=== PATIENT | female | born 2000 | race African-American/Black ===

== ENCOUNTER 2022-01-04 14:28 | Emergency (ER) | payer OTHER, SELFPAY ==
--- NOTE | ~2022-01-04 | XR_ITS ---
EXAMINATION: XR hand LT min 3V DATE: 01/04/2022 15:22 INDICATION: Left hand pain. TECHNIQUE: 3 views of left hand were obtained. COMPARISON: None. FINDINGS: Bone alignment is normal. No fracture. Joint spaces are well maintained. IMPRESSION: 1. Normal left hand. Reviewed, dictated and finalized at location A. IMPRESSION: 1. Normal left hand.
[2022-01-04 14:40] VITALS: BP 144/95; PULSE 87; RESP 18; TEMP 36; O2SAT 100
--- NOTE | 2022-01-04 15:42 | ED.UPPEXIN ---
HPI - Extremity Injury (Upper) General Chief Complaint: Extremity Injury, Upper Stated Complaint: injury Time Seen by Provider: 01/04/22 14:46 Source: patient Mode of arrival: ambulatory Limitations: no limitations History of Present Illness HPI narrative: Pt is a 21 y/o female, presents to ED via POV with C/O left hand pain for the past few days, worse with flexion of fingers as when grasping objects, without known injury. She does endorse repetitive movements of BUE on a daily basis. She is right hand dominant. Pain in the left hand radiates up the forearm at times and is alleviated at rest. She has no other complaints and denies chance of complaint: injury to: left and hand Other injuries: none Handedness: right Place: home Severity: mild Severity scale (1-10): 4 Relieving factors: none Exacerbating factors: rest Associated symptoms: denies other symptoms Related Data Allergies Allergy/AdvReac Type Severity Reaction Status Date / Time No Known Allergies Allergy Verified 01/04/22 14:40 Review of Systems Review of Systems: All systems reviewed & are unremarkable except as noted in HPI and below Exam Const: General: cooperative, healthy appearing, comfortable, well developed and well groomed Nutritional Appearance: obese Orientation/consciousness: oriented to person, oriented to place, oriented to time and patient oriented x3 Limitations: no limitations HENMT: Head: normal to inspection Ears: hearing grossly normal bilaterally General nose exam: Normal external nose present Face and sinus: normal facial exam Eyes: General: appearance normal, both eyes and all related structures Visual Mobley: normal visual mboley by confrontation Alignment and Position: alignment normal and position normal Periorbital: periorbital findings normal Eyelids: eyelids normal Conjunctivae: conjunctivae normal Sclera: sclerae normal Neck: Neck: normal visual inspection and no meningeal signs Resp: Effort & Inspection: normal respiratory effort Auscultation: clear to auscultation bilaterally Cardio: Rate: regular rate Rhythm: regular rhythm Heart sounds: S1 normal heart sound present and S2 normal heart sound present Peripheral pulses: Peripheral pulses 2+ throughout Skin: General skin exam: normal color and no rashes or lesions noted Neuro: Deep tendon reflexes (DTR's): Left biceps reflex intensity grade: 2+ and Left brachioradialis reflex intensity grade: 2+ Extrem: General: normal to inspection, full ROM and capillary refill normal Left upper extremity: normal to inspection, full ROM, normal capillary refill and hand normal to inspection and tendon exam abnormal (Pt is TTP over the left palmar surface, 2nd and 3rd distal MC, without visible swelling or ROM deficit. Pain increases with flexion of fingers of the left hand, ROM is intact. Distal PMS intact) Course Course Emergency Course: Imaging is unremarkable. Plan to discharge home on oral anti-inflammatories, in cock up splint, rest, elevate, FU with Dr Reddy if symptoms are not improving in 10-14 days. Pt is agreeable with plan. Vital Signs Vital signs: Vital Signs Temperature 36.0 C L 01/04/22 14:40 Pulse Rate 87 01/04/22 14:40 Respiratory Rate 18 01/04/22 14:40 Blood Pressure 144/95 H 01/04/22 14:40 Pulse Oximetry 100 01/04/22 14:40 Temperature 36.0 C L 01/04/22 14:40 Pulse Rate 87 01/04/22 14:40 Respiratory Rate 18 01/04/22 14:40 Blood Pressure 144/95 H 01/04/22 14:40 Pulse Oximetry 100 01/04/22 14:40 MDM - Extremity Injury (Upper) MDM Narrative Medical decision making narrative: tendinitis, contusion, carpal tunnel is of lower concern given age and location of discomfort Imaging Data Attestation: I personally reviewed and interpreted this imaging study as follows: Discharge Plan Discharge Clinical Impression: Flexor tendinitis of hand Patient Disposition: Home, Self-Care Condition: Stable Instructions:
--- NOTE | 2022-01-04 16:08 | PC.NURSE ---
Currently out of stock for wrist splint. Notified provider. Provider writing prescription for splint.
== END 2022-01-04 16:17 | disposition home or self-care (01) ==
PROVIDERS: Emergency Provider Nurse Practitioner Family
DX: M77.8 Other enthesopathies, not elsewhere classified (principal)
CPT/HCPCS: 29125; 73130; 99283

== ENCOUNTER 2022-07-10 20:55 | Emergency (ER) | payer OTHER, SELFPAY ==
--- NOTE | ~2022-07-10 | XR_ITS ---
EXAM: XR foot LT min 3V DATE: 07/10/2022 21:35 HISTORY: gen pain, swelling Lt foot onset x days; no injury . COMPARISON: None available. FINDINGS: Normal mineralization. No fracture or dislocation. No lytic or blastic lesion. Pes planus. Moderate hallux valgus. Mild degenerative change at the first MTP joint, remaining joint spaces are maintained. No erosion or periosteal change. Forefoot soft tissue swelling. IMPRESSION: No acute osseous finding in the left foot. Reviewed, dictated and finalized at location K.
[2022-07-10 21:04] VITALS: BP 124/79; PULSE 88; RESP 16; TEMP 36.2; O2SAT 100
--- NOTE | 2022-07-10 21:27 | ED.EXTPRO ---
HPI - Extremity Problem General Chief complaint: Extremity Problem,Nontraumatic Stated complaint: Left foot pain/edema Time Seen by Provider: 07/10/22 21:05 History of Present Illness HPI Narrative: 22-year-old with a history of hypothyroidism presents to the emergency room for evaluation of atraumatic left foot pain and swelling. Patient states that she woke up this morning noticed her left foot was swollen. Denies any injury or trauma. Denies any insect stings. States pain radiates up into her calf when ambulating. Denies any known history of DVTs. Related Data Allergies Allergy/AdvReac Type Severity Reaction Status Date / Time No Known Allergies Allergy Verified 07/10/22 20:58 Review of Systems Review of Systems: CONSTITUTIONAL: Denies fever, chills, or sweats. EYES: Denies visual changes, redness, or discharge. ENT: Denies rhinorrhea, congestion, sore throat, or otalgia. CARDIOVASCULAR: Denies chest pain, palpitations, or edema. RESPIRATORY: Denies cough or dyspnea. GASTROINTESTINAL: Denies abdominal pain, nausea, vomiting, or diarrhea. GENITOURINARY: Denies dysuria or hematuria. SKIN: Denies rash or itching. MUSCULOSKELETAL: Reports diffuse swelling of left foot NEUROLOGIC: Denies headache, numbness, dizziness, or weakness. PSYCHIATRIC: Denies anxiety or depression. Exam Narrative: GENERAL: Well-appearing, well-nourished, no physical limitations, and in no acute distress. HEAD: Normocephalic, atraumatic. EYES: Conjunctivae normal, PERRLA and EOMI. CHEST: Clear to auscultation. No respiratory distress. No wheezes rales or rhonchi. HEART: Regular rate and rhythm. No murmur heard. Normal peripheral pulses. ABDOMEN: Soft, nontender, nondistended, normal active bowel sounds. EXTREMITIES: Left foot: Diffuse soft tissue swelling no point tenderness. Negative Homans' sign. Distal pulses present SKIN: Warm, dry, no rash. No noted wounds NEURO: No focal deficits. Alert and oriented x3. MAEW. CN's II-XI intact bilaterally, normal gait PSYCH: Cooperative. Normal mood and affect. Course Vital Signs Vital signs: Vital Signs Temperature 36.2 C L 07/10/22 21:04 Pulse Rate 88 07/10/22 21:04 Respiratory Rate 16 07/10/22 21:04 Blood Pressure 124/79 07/10/22 21:04 Pulse Oximetry 100 07/10/22 21:04 Oxygen Delivery Room Air 07/10/22 21:04 Temperature 36.2 C L 07/10/22 21:04 Pulse Rate 88 07/10/22 21:04 Respiratory Rate 16 07/10/22 21:04 Blood Pressure 124/79 07/10/22 21:04 Pulse Oximetry 100 07/10/22 21:04 Oxygen Delivery Room Air 07/10/22 21:04 MDM - Extremity (Nontraumatic) Lab Data Labs: Lab Results 07/10/22 Range/Units 21:32 D-Dimer 0.36 (<0.48) ug/mL Discharge Plan Discharge Clinical Impression: Lower extremity edema Patient Disposition: Home, Self-Care Condition: Stable Instructions: Antibiotic Form, Edema (ED) Prescriptions: New naproxen 500 mg tablet 500 mg PO BID Qty: 20 0RF No Action ibuprofen 600 mg tablet 600 mg PO Q6H PRN (Reason: pain) Qty: 20 0RF Follow-up/Referrals: PHYSICIAN NOT ON STAFF,NONSTAFF [Primary Care Provider] - Time of Disposition: 22:33
[2022-07-10 22:09] LABS: D Dimer 0.36 ug/mL (<0.48)
[2022-07-10] MEDS: NAPROXEN 500 MG TABLET PO (22:50)
[2022-07-10 22:54] VITALS: BP 138/80; PULSE 86; RESP 16; TEMP 36.8; O2SAT 100
== END 2022-07-10 22:56 | disposition home or self-care (01) ==
PROVIDERS: Emergency Provider Nurse Practitioner Family
DX: R60.0 Localized edema (principal)
CPT/HCPCS: 36415; 73630; 85380; 99283; A9270

== ENCOUNTER 2023-08-30 20:12 | Emergency (ER) | payer OTHER, SELFPAY ==
--- NOTE | ~2023-08-30 | XR_ITS ---
EXAMINATION: XR chest 2V DATE: 08/30/2023 20:50 INDICATION: Mid anterior chest pain. TECHNIQUE: Frontal and lateral views of the chest were obtained. COMPARISON: None. FINDINGS: There is no pneumonia, pleural effusion, or pneumothorax. The heart size is normal. IMPRESSION: 1. No acute cardiopulmonary disease. Reviewed, dictated and finalized at location E. WORKER
--- NOTE | ~2023-08-30 | US_ITS ---
EXAMINATION: US abdomen limited DATE: 08/30/2023 21:36 INDICATION: Right upper quadrant abdominal pain. TECHNIQUE: Multiple grayscale and Doppler ultrasound images of the abdomen were obtained. COMPARISON: None FINDINGS: The visualized portions of the head, body, and tail of the pancreas are normal. The liver i s normal without focal lesion. The gallbladder is normal in size and contains a gallstone. No gallbla dder wall thickening or sonographic Pedro sign. The common duct is normal and measures 3 mm. There i s normal flow in main portal vein. Right kidney is normal. IMPRESSION: 1. Cholelithiasis. No evidence of acute cholecystitis. Reviewed, dictated and finalized at location E. CAR BUILDER
--- NOTE | 2023-08-30 20:14 | ECG_ITS ---
Measurements Intervals [place] Rate: 89 P: 59 HI: 179 QRS: 17 QRSD: 88 T: 30 QT: 348 QTc: 425 Interpretive Statements SINUS RHYTHM BORDERLINE T WAVE ABNORMALITY- ANTERIOR LEADS BORDERLINE ECG NO PREVIOUS ECG AVAILABLE FOR COMPARISON Electronically Signed On 08-31-2023 7:06:57 EVAPORATOR by Fei Mccormick D.O.
[2023-08-30 20:15] VITALS: BP 145/95; PULSE 93; RESP 20; TEMP 37; O2SAT 99
[2023-08-30] MEDS: ASPIRIN 81 MG CHEWABLE TABLET 324 MG PO (20:34)
[2023-08-30 20:40] LABS: Basophils Percent Auto 0.5 % (0.2-1.2); Eosinophils Absolute Auto 0.1 K/mm3 (0-0.3); Eosinophils Percent Auto 1.3 % (0-4.4); Hematocrit 40.7 % (37.0-47.0); Hemoglobin 12.7 g/dL (12.0-15.0); Immature Granulocyte Absolute 0.01 K/mm3 (0.00-0.031); Immature Granulocyte Percent A 0.2 % (0-0.5); Lymphocytes Absolute Auto 2.62 K/mm3 (0.9-3.2); Lymphocytes Percent Auto 41.1 % (18.3-44.2); Mean Corpuscular HGB Conc 31.2 g/dl (32-36); Mean Corpuscular Hemoglobin 25.8 pg (26-34); Mean Corpuscular Volume 82.7 fl (80-100); Mean Platelet Volume 11.2 fl (7.4-10.4); Monocytes Absolute Auto 0.9 K/mm3 (0.1-0.6); Monocytes Percent Auto 13.9 % (2.6-8.5); Neutrophils Absolute Auto 2.8 K/mm3 (1.3-6.7); Platelet Count Result 266 k/mm3 (150-375); Red Blood Count 4.92 M/mm3 (4.2-5.4); Red Cell Distribution Width 13.3 % (11.5-14.5); White Blood Count 6.4 K/mm3 (4.5-10.0)
[2023-08-30 20:50] LABS: Alanine Aminotransferase 22 U/L (6-35); Albumin Level 4.2 g/dL (3.5-5.1); Alkaline Phosphatase 70 U/L (38-126); Anion Gap 6 mmol/L (8-16); Aspartate Amino Transferase 23 U/L (14-36); Bilirubin,Total 0.4 mg/dL (0.2-1.3); Blood Urea Nitrogen 7 mg/dL (7-17); Calcium 8.8 mg/dL (8.4-10.2); Carbon Dioxide 27 mmol/L (22-30); Chloride 103 mmol/L (98-107); Estimated CRCL calculation 124 ml/min; Estimated Glomerular Filt Rate > 60; Glucose 92 mg/dL (65-110); Lipase 67 U/L (23-300); Potassium 3.8 mmol/L (3.4-5.0); Sodium 136 mmol/L (137-145)
[2023-08-30 20:53] LABS: Prothrombin Time 13.1 Seconds (11.1-14.7)
[2023-08-30 20:54] LABS: Partial Thromboplastin Time 34.4 SECONDS (22.3-36.8)
[2023-08-30 21:01] LABS: Troponin I < 0.012 ng/mL (0.000-0.034)
[2023-08-30] MEDS: FAMOTIDINE 20 MG/2 ML VIAL IV PUSH (21:05)
--- NOTE | 2023-08-30 21:15 | ED.GENADULT ---
HPI - General Adult General Chief complaint: Chest Pain Stated complaint: chest pain/numbness in left hand Time Seen by Provider: 08/30/23 20:43 History of Present Illness HPI narrative: Patient 14-year-old female who presents emergency department with chief complaint of chest pain. Patient reports that she started having discomfort in her chest today patient reports that she did have a strange sensation in her left arm. Patient reports also she has had some uncomfortable feeling in her right upper quadrant as well. Patient states that she has family history for cardiac disease but she has never been diagnosed with cardiac disease. Patient reports that her mother had heart disease in her early 40s. Related Data Allergies Allergy/AdvReac Type Severity Reaction Status Date / Time No Known Allergies Allergy Verified 08/30/23 20:26 Review of Systems Review of Systems: A 10 system review of systems was completed on the patient and is negative except for what is stated in the HPI. Nursing and ancillary documentation was reviewed. Exam Narrative: GENERAL: Well-appearing, well-nourished, and in no acute distress. HEAD: Normocephalic, atraumatic. EYES: PERRLA and EOMI. ENT: Nares clear, no rhinorrhea or epistaxis. Mucous membranes moist. NECK: Supple. CHEST: Clear to auscultation. No respiratory distress. Tenderness to palpation of the right sternal border HEART: Regular rate and rhythm. No murmur heard. Normal peripheral pulses. ABDOMEN: Soft, nontender, nondistended, normal active bowel sounds. EXTREMITIES: Normal range of motion. No edema. SKIN: Warm, dry, no rash. NEURO: No focal deficits. Alert and oriented x3. PSYCH: Normal mood and affect. Course Vital Signs Vital signs: Vital Signs Temperature 37.0 C 08/30/23 20:15 Pulse Rate 93 08/30/23 20:15 Respiratory Rate 20 08/30/23 20:15 Blood Pressure 145/95 H 08/30/23 20:15 Pulse Oximetry 99 08/30/23 20:15 Oxygen Delivery Room Air 08/30/23 20:15 Temperature 37.0 C 08/30/23 20:15 Pulse Rate 80 08/30/23 23:59 Respiratory Rate 12 08/30/23 23:59 Blood Pressure 113/72 08/30/23 23:59 Pulse Oximetry 98 08/30/23 23:59 Oxygen Delivery Room Air 08/30/23 20:15 Medical Decision Making MDM Narrative Medical decision making narrative: Differential diagnosis includes cholecystitis, acute coronary syndrome, biliary colic, gastroesophageal reflux disease, esophageal spasm. Laboratory studies were obtained which showed a normal CBC electrolytes were within normal limits liver enzymes were normal initial troponin was negative and repeat troponin was negative as well. Lipase was 67 EKG showed no acute ischemic changes Chest x-ray showed no focal infiltrate Right upper quadrant ultrasound showed evidence of cholelithiasis without evidence of cholecystitis Vital Signs Vital Signs: Vital Signs Temperature 37.0 C 08/30/23 20:15 Pulse Rate 93 08/30/23 20:15 Respiratory Rate 20 08/30/23 20:15 Blood Pressure 145/95 H 08/30/23 20:15 Pulse Oximetry 99 08/30/23 20:15 Oxygen Delivery Room Air 08/30/23 20:15 Temperature 37.0 C 08/30/23 20:15 Pulse Rate 80 08/30/23 23:59 Respiratory Rate 12 08/30/23 23:59 Blood Pressure 113/72 08/30/23 23:59 Pulse Oximetry 98 08/30/23 23:59 Oxygen Delivery Room Air 08/30/23 20:15 Lab Data 08/30/23 20:35 08/30/23 20:35 Labs: Lab Results 08/30/23 08/30/23 08/30/23 Range/Units 20:35 20:36 23:17 WBC 6.4 (4.5-10.0) K/mm3 RBC 4.92 (4.2-5.4) M/mm3 Hgb 12.7 (12.0-15.0) g/dL Hct 40.7 (37.0-47.0) % MCV 82.7 (80-100) fl MCH 25.8 L (26-34) pg MCHC 31.2 L (32-36) g/dl RDW 13.3 (11.5-14.5) % Plt Count 266 (150-375) k/mm3 MPV 11.2 H (7.4-10.4) fl Immature Gran % (Auto) 0.2 (0-0.5) % Neut % (Auto) 43.0 L (45.5-73.1) % Lymph % (Auto) 41.1 (18.3-44.2) %
[2023-08-30 22:11] VITALS: BP 97/51; PULSE 92; RESP 16; O2SAT 99
[2023-08-30 22:47] VITALS: BP 115/78; PULSE 82; RESP 16; O2SAT 100
[2023-08-30] MEDS: KETOROLAC 15 MG/ML VIAL (*BKC) IV PUSH (23:06)
[2023-08-30 23:59] VITALS: BP 113/72; PULSE 80; RESP 12; O2SAT 98
[2023-08-31 00:13] LABS: Troponin I < 0.012 ng/mL (0.000-0.034)
[2023-08-31 00:34] VITALS: BP 120/73; PULSE 78; RESP 16; O2SAT 100
== END 2023-08-31 00:34 | disposition home or self-care (01) ==
PROVIDERS: Emergency Provider Emergency Medicine
DX: K80.20 Calculus of gallbladder without cholecystitis without obstruction (principal); R07.89 Other chest pain; R94.31 Abnormal electrocardiogram [ECG] [EKG]
CPT/HCPCS: 36415; 71046; 76705; 80053; 83690; 84484; 85025; 85610; 85730; 93005; 96374; 96375; 99284; A9270; J1885

== ENCOUNTER 2024-01-15 00:54 | Emergency (ER) | payer OTHER, SELFPAY ==
--- NOTE | ~2024-01-15 | CT_ITS ---
EXAMINATION: CT abdomen pelvis w con DATE: 01/15/2024 02:19 INDICATION: Right abdominal pain. TECHNIQUE: Computed tomography (CT) of the abdomen and pelvis was performed with 100 mL Omnipaque 350 intravenous contrast. Automated exposure control and iterative reconstruction technique were employe d. The dose-length product was 1060.18 mGy-cm. COMPARISON: Pelvis ultrasound 01/15/2024 FINDINGS: The visualized portions of the lung bases are clear without pneumonia or pleural effusion. The heart size is normal. No pericardial effusion. The liver, gallbladder, spleen, pancreas, adrenal glands, and kidneys are normal. There are no dilated loops of bowel. The appendix is normal. There ar e no pathologically enlarged lymph nodes. There is no free intraperitoneal fluid. There is a 3.2 cm c yst in right ovary. There is mild thoracic and lumbar spondylosis. IMPRESSION: 1. 3.2 cm cyst in right ovary, likely a follicular cyst. Reviewed, dictated and finalized at location E.
--- NOTE | ~2024-01-15 | US_ITS ---
EXAMINATION: US pelvic complete w TV DATE: 01/15/2024 04:04 INDICATION: Right lower quadrant abdominal pain. TECHNIQUE: Multiple transabdominal and transvaginal sonographic images of the pelvis were obtained. COMPARISON: CT abdomen and pelvis 01/15/2024 FINDINGS: TRANSABDOMINAL ULTRASOUND: The uterus measures 7.0 x 4.0 x 5.0 cm. There is no free fluid in the pelvis. TRANSVAGINAL ULTRASOUND: The endometrial complex measures 9 mm in thickness. The right ovary measures 3.4 x 2.5 x 3.0 cm. The left ovary measures 1.8 x 1.8 x 1.5 cm. In the right ovary, there is a 3.2 cm cyst. There is normal v ascular flow in the ovaries. IMPRESSION: 1. 3.2 cm cyst in right ovary, likely a follicular cyst. Reviewed, dictated and finalized at location E.
[2024-01-15 00:55] VITALS: BP 118/104; PULSE 88; RESP 16; TEMP 36.6; O2SAT 100
[2024-01-15 01:23] LABS: Basophils Absolute Auto 0.1 K/mm3 (0.0-0.1); Basophils Percent Auto 0.7 % (0.2-1.2); Eosinophils Absolute Auto 0.2 K/mm3 (0-0.3); Eosinophils Percent Auto 2.3 % (0-4.4); Hematocrit 40.4 % (37.0-47.0); Hemoglobin 12.7 g/dL (12.0-15.0); Immature Granulocyte Absolute 0.01 K/mm3 (0.00-0.031); Immature Granulocyte Percent A 0.1 % (0-0.5); Lymphocytes Absolute Auto 3.46 K/mm3 (0.9-3.2); Lymphocytes Percent Auto 47.2 % (18.3-44.2); Mean Corpuscular HGB Conc 31.4 g/dl (32-36); Mean Corpuscular Volume 82.8 fl (80-100); Mean Platelet Volume 10.9 fl (7.4-10.4); Monocytes Absolute Auto 0.7 K/mm3 (0.1-0.6); Monocytes Percent Auto 9.8 % (2.6-8.5); Neutrophils Absolute Auto 2.9 K/mm3 (1.3-6.7); Neutrophils Percent Auto 39.9 % (45.5-73.1); Platelet Count Result 316 k/mm3 (150-375); Red Blood Count 4.88 M/mm3 (4.2-5.4); Red Cell Distribution Width 13.3 % (11.5-14.5); White Blood Count 7.3 K/mm3 (4.5-10.0)
[2024-01-15 01:31] VITALS: BP 121/82; PULSE 82; RESP 17; O2SAT 99
[2024-01-15 01:41] LABS: Alanine Aminotransferase 19 U/L (6-35); Albumin Level 4.2 g/dL (3.5-5.1); Alkaline Phosphatase 69 U/L (38-126); Anion Gap 5 mmol/L (8-16); Aspartate Amino Transferase 29 U/L (14-36); Bilirubin,Total 0.4 mg/dL (0.2-1.3); Blood Urea Nitrogen 14 mg/dL (7-17); Calcium 9.1 mg/dL (8.4-10.2); Carbon Dioxide 28 mmol/L (22-30); Chloride 105 mmol/L (98-107); Estimated CRCL calculation 112 ml/min; Estimated Glomerular Filt Rate > 60; Glucose 104 mg/dL (65-110); Lipase 124 U/L (23-300); Potassium 3.6 mmol/L (3.4-5.0); Sodium 138 mmol/L (137-145)
[2024-01-15 01:47] LABS: SPREG INTERNAL CONTROL Positive; Serum Qual hCG Negative
--- NOTE | 2024-01-15 02:22 | ED.ABDPAIN ---
HPI - Abdominal Pain General Chief Complaint: Abdominal Pain Stated Complaint: gall bladder pain Time Seen by Provider: 01/15/24 01:12 History of Present Illness HPI narrative: Patient is a 23-year-old female who presents to the emergency department this evening complaining of right-sided abdominal pain. Patient states that she has been told in the past that she has gallstones and is concerned this is her gallbladder causing pain. Patient states pain started today approximately 4 hours ago and has been constant since then. She denies any nausea or vomiting, and dysuria, hematuria, constipation, diarrhea. Patient denies any chance of . There are no other modifying, alleviating, or precipitating factors this time. Related Data Allergies Allergy/AdvReac Type Severity Reaction Status Date / Time No Known Allergies Allergy Verified 01/15/24 01:19 Review of Systems Review of Systems: All systems are reviewed and are negative unless stated otherwise in the HPI. PMFSH Comments Denies any significant past medical or surgical history, denies any pertinent family history and denies any illicit drug use. Exam Narrative: General: Alert, awake, afebrile, in no acute distress. HEENT: PERRL, no rhinorrhea, no post nasal drip, oropharynx clear. Neck: Trachea midline, no JVD, no lymphadenopathy. Cardiovascular: Regular rate and rhythm, no murmurs, rubs or gallops, no peripheral edema. Respiratory: Clear to auscultation bilaterally, no tachypnea, no wheezing, no rhonchi, no rubs, no respiratory distress. Abdomen: Soft, negative Pedro sign, tenderness with pressure over the right lower quadrant, nondistended, no rebound, no guarding, no peritoneal signs. Musculoskeletal: No joint swelling or deformity, normal muscle tone. Skin: No rashes or petechia, no signs of infection. Psychiatric: Alert and oriented, normal behavior and judgment for situation. Neurological: Alert and oriented to person, place, and time. Follows all commands. No focal deficits, speech is clear and fluent. Course Vital Signs Vital signs: Vital Signs Temperature 97.9 F 01/15/24 00:55 Pulse Rate 88 01/15/24 00:55 Respiratory Rate 16 01/15/24 00:55 Blood Pressure 118/104 H 01/15/24 00:55 Pulse Oximetry 100 01/15/24 00:55 Temperature 97.9 F 01/15/24 00:55 Pulse Rate 84 01/15/24 03:10 Respiratory Rate 16 01/15/24 03:10 Blood Pressure 126/84 01/15/24 03:10 Pulse Oximetry 99 01/15/24 03:10 MDM - Abdominal Pain MDM Narrative Medical decision making narrative: The patient was evaluated by myself in the emergency department. History is obtained from patient who is an independent historian and physical exam was performed. External medical records were reviewed at this time. IV was established and pertinent tests were ordered. Patient was administered 15 mg of IV Toradol for pain after her test was noted to be negative. Laboratory results obtained revealing no acute process. Imaging studies obtained included CT abdomen and pelvis with IV contrast which was independently interpreted by me revealing mildly distended gallbladder with pericholecystic fluid, no stones identified, no biliary dilation, which is pending final radiology interpretation. CT also comment on incidental 3.5 cm right ovarian cyst. Giving the patient's right lower quadrant tenderness to palpation, pelvic ultrasound was obtained at this time to rule out ovarian torsion. Good flow was visualized to both ovaries. Patient is currently resting comfortably asleep. She was instructed that her 3.[address] her higher risk for torsion and provided with strict return precautions if she develops sudden onset right lower quadrant abdominal pain patient is agreeable. Patient was informed that she will likely need a gallbladder ultrasound which we are unable to perform at this time as only emergent ultrasound can be obtained overnight. Josselin
[2024-01-15] MEDS: KETOROLAC 15 MG/ML VIAL (*BKC) IV PUSH (03:07)
[2024-01-15 03:09] VITALS: BP 126/84; PULSE 73; RESP 19; O2SAT 100
[2024-01-15 03:10] VITALS: BP 126/84; PULSE 84; RESP 16; O2SAT 99
[2024-01-15 03:18] LABS: Bacteria Urine None Seen /hpf; Non Pathogenic Casts 0-2; RBC Urine 0-2 /hpf (0-2); Squamous Epithelial Cell Urine None Seen /hpf (Few); WBC Urine 0-5 /hpf (0-3)
[2024-01-15 03:48] LABS: Appearance Urine Clear (Clear); Color Urine Yellow (Yellow); Protein Urine Negative (Negative)
[2024-01-15 03:49] LABS: Add Urine Microscopic? YES; Bilirubin Urine Negative (Negative); Blood Urine Trace-Lysed (Negative); Glucose Urine UA Negative (Negative); Ketones Urine Trace mg/dL (Negative); Leukocyte Esterase Ur Negative LEU/UL (Negative); Nitrate Urine Negative (Negative)
[2024-01-15 04:27] VITALS: BP 122/80; PULSE 80; RESP 16; O2SAT 99
== END 2024-01-15 04:29 | disposition home or self-care (01) ==
PROVIDERS: Emergency Provider Emergency Medicine
DX: N83.201 Unspecified ovarian cyst, right side (principal)
CPT/HCPCS: 36415; 74177; 76830; 76856; 80053; 81001; 82248; 83690; 84703; 85025; 96374; 99284; J1885; Q9967